=== PATIENT | male | born 1955 | race Caucasian/White ===

== ENCOUNTER → 2016-12-18 | Outpatient (CLI) | payer OTHER ==
[2016-12-18 09:19] LABS: ALANINE AMINOTRANSFERASE 78 Units/L (12-78); ALBUMIN 3.7 g/dL (3.4-5.0); ALKALINE PHOSPHATASE 68 Units/L (46-116); ASPARTATE AMINO TRANSFERASE 34 Units/L (15-37); BLOOD UREA NITROGEN 26 mg/dL (7-18); CALCIUM 10.7 mg/dL (8.5-10.1); CARBON DIOXIDE 30.8 mmol/L (21-32); CHLORIDE 101 mmol/L (98-107); COR NA(FOR HYPERGLY) 143 mmol/L (136-145); CREATININE 1.68 mg/dL (0.70-1.30); GLUCOSE 314 mg/dL (65-99); SODIUM 138 mmol/L (136-145); TOTAL PROTEIN 8.1 g/dL (6.4-8.2); eGFR BLACK RACES 54 (>60); eGFR NON BLACK RACES 44 (>60)
[2016-12-18 10:16] LABS: HEMOGLOBIN A1C 9.7 % (4.5-6.2)
== END ==
LOC: LAB 08:44
PROVIDERS: ATTEND Specialist
DX: E11.65 Type 2 diabetes mellitus with hyperglycemia (principal)
CPT/HCPCS: 36415; 80053; 83036

== ENCOUNTER → 2017-03-05 | Outpatient (CLI) | payer OTHER ==
[2017-03-05 10:19] LABS: ALANINE AMINOTRANSFERASE 107 Units/L (12-78); ALBUMIN 3.9 g/dL (3.4-5.0); ALKALINE PHOSPHATASE 62 Units/L (46-116); ASPARTATE AMINO TRANSFERASE 47 Units/L (15-37); BLOOD UREA NITROGEN 22 mg/dL (7-18); CALCIUM 9.3 mg/dL (8.5-10.1); CARBON DIOXIDE 29.1 mmol/L (21-32); CHLORIDE 99 mmol/L (98-107); COR NA(FOR HYPERGLY) 143 mmol/L (136-145); GLUCOSE 377 mg/dL (65-99); SODIUM 136 mmol/L (136-145); TOTAL PROTEIN 8.1 g/dL (6.4-8.2); eGFR BLACK RACES 57 (>60); eGFR NON BLACK RACES 47 (>60)
== END ==
LOC: LAB 09:41
PROVIDERS: ATTEND Specialist
DX: E21.0 Primary hyperparathyroidism (principal)
CPT/HCPCS: 36415; 80053

== ENCOUNTER → 2017-05-22 | Outpatient (CLI) | payer OTHER ==
[2017-05-22 10:01] LABS: ALANINE AMINOTRANSFERASE 83 Units/L (12-78); ALBUMIN 3.7 g/dL (3.4-5.0); ALKALINE PHOSPHATASE 60 Units/L (46-116); ASPARTATE AMINO TRANSFERASE 44 Units/L (15-37); BLOOD UREA NITROGEN 16 mg/dL (7-18); CALCIUM 9.7 mg/dL (8.5-10.1); CARBON DIOXIDE 30.1 mmol/L (21-32); CHLORIDE 101 mmol/L (98-107); COR NA(FOR HYPERGLY) 138 mmol/L (136-145); CREATININE 1.52 mg/dL (0.70-1.30); SODIUM 134 mmol/L (136-145); TOTAL PROTEIN 7.9 g/dL (6.4-8.2); eGFR BLACK RACES 60 (>60); eGFR NON BLACK RACES 50 (>60)
[2017-05-22 10:02] LABS: HEMOGLOBIN A1C 10.1 % (4.5-6.2)
[2017-05-22 10:15] LABS: CREATININE,URINE 104.16 mg/dL (40-278); MICROALBUMIN,URINE 54.1 mg/L
== END ==
LOC: LAB 09:18
PROVIDERS: ATTEND Specialist
DX: E11.65 Type 2 diabetes mellitus with hyperglycemia (principal); E21.0 Primary hyperparathyroidism
CPT/HCPCS: 36415; 80053; 82043; 82306; 83036; 83970